=== PATIENT | female | born 1995 | race Two or more races ===

== ENCOUNTER → 2017-06-08 | Outpatient (REF) | payer OTHER | LOC: M LAB REF 18:29 | DX: Z01.419 Encounter for gynecological examination (general) (routine) without abnormal findings (principal) ==

== ENCOUNTER → 2017-06-08 | Outpatient (REF) | payer OTHER ==
[2017-06-09 03:59] LABS: CHLAMYDIA DNA AMPLIFICATION NEGATIVE (NEGATIVE); GC DNA AMPLIFICATION NEGATIVE (NEGATIVE)
== END ==
LOC: M LAB REF 17:01
DX: Z01.419 Encounter for gynecological examination (general) (routine) without abnormal findings (principal)
CPT/HCPCS: 87591

== ENCOUNTER → 2018-03-23 | Outpatient (REF) | payer OTHER | LOC: M LAB REF 16:35 | PROVIDERS: ATTEND Physician Assistant | DX: R30.0 Dysuria (principal) ==

== ENCOUNTER → 2018-04-17 | Outpatient (REF) | payer OTHER ==
[2018-04-18 12:18] LABS: CHLAMYDIA DNA AMPLIFICATION NEGATIVE (NEGATIVE); GC DNA AMPLIFICATION NEGATIVE (NEGATIVE)
== END ==
LOC: M LAB REF 17:10
PROVIDERS: ATTEND Physician Assistant
DX: R30.0 Dysuria (principal)

== ENCOUNTER → 2019-07-25 | Outpatient (REF) | payer BC ==
[2019-07-25 22:39] LABS: CHLAMYDIA DNA AMPLIFICATION NEGATIVE (NEGATIVE); GC DNA AMPLIFICATION NEGATIVE (NEGATIVE)
== END ==
LOC: M LAB REF 19:58 → M WUC 19:58
PROVIDERS: ATTEND Physician Assistant
DX: R30.0 Dysuria (principal)